=== PATIENT | male | born 1965 | race Caucasian/White ===

== ENCOUNTER → 2024-07-14 15:46 | Outpatient (CLI) | payer OTHER, SELFPAY ==
--- NOTE | 2024-07-14 15:49 | DI.MRI.S_ITS ---
PROCEDURE: MR KNEE LT WO CON INDICATIONS: OSTEOARTHRITIS / EVALUATE LT KNEE TECHNIQUE: Noncontrast sagittal PD fast spin echo and T2 fast spin echo with fat saturation, sagittal 3-D FLASH with fat saturation; coronal T1 spin echo and PD fast spin echo with fat saturation, and axial PD fast spin echo with fat saturation through the knee. COMPARISON: [facility] [place], CR, XR KNEE ARTHRITIC SERIES BI, 07/05/2024, 9:48. FINDINGS: Image quality: Diagnostic Menisci: Medial: Extruded and partially macerated medial meniscus, particularly at the body. There is a radial root tear. Lateral: Mostly horizontal tear throughout the body and posterior horn. Cruciate ligaments: Intact. Medial structures: MCL: Njad-ot-lthtosci periligamentous edema Pes anserine tendons: Moderate bursal edema Semimembranosus: Intact Lateral structures: LCL: Moderate edema at the femoral origin Biceps femoris: Mild insertional tendinopathy IT band: Intact Popliteus tendon: Zxom-bz-hkdhhzge insertional tendinopathy Anterior structures: Extensor mechanism: Extensive enthesopathy, but without significant acute edema Fat pads: No pathologic edema Medial retinaculum: Intact. Trochlea: Abnormally increased TT TG distance at over 2 cm. Bone and joint: Bones: Chronic appearing bone fragment with numerous subchondral cysts lateral to patella. Cartilage: Multifocal areas of full-thickness cartilage loss worst in the medial compartment with subchondral edema at multiple locations. There is also involvement of the medial patellar facet, femoral trochlea. Milder involvement is seen in the lateral compartment Joint space: Moderate joint effusion and synovitis Taveras's cyst: None Soft tissues: Mild diffuse soft tissue edema IMPRESSION: Extruded and partially macerated medial meniscus with radial root tear. Likely degenerative smaller horizontal tear through the lateral meniscus. Advanced degenerative changes with full-thickness cartilage loss of the medial compartment at multiple locations with subchondral edema. There is also full-thickness loss of the medial patellar facet cartilage and femoral trochlear cartilage. Milder involvement seen in lateral compartment. Sprains of the collateral ligaments. Intact cruciate ligaments. 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 Elevated TT TG distance, sometimes seen with maltracking. There is significant enthesopathy at the extensor mechanism without significant acute edema. Jjcj-vx-hsxcgkuo edema of the biceps femoris and popliteus insertions. Moderate bursal edema the pes anserine tendons. Moderate joint effusion and synovitis Dictated by: Jeffry Fisher M.D. on 07/17/2024 at 8:57 Approved by: Jeffry Fisher M.D. on 07/17/2024 at 9:03
== END ==
PROVIDERS: Referring Provider Orthopaedic Surgery Adult Reconstructive Orthopaedic Surgery; Visit Provider Orthopaedic Surgery Adult Reconstructive Orthopaedic Surgery
DX: S83.242A Other tear of medial meniscus, current injury, left knee, initial encounter (principal); M17.12 Unilateral primary osteoarthritis, left knee; M25.462 Effusion, left knee; M65.90 Unspecified synovitis and tenosynovitis, unspecified site; R60.0 Localized edema
CPT/HCPCS: 73721

== ENCOUNTER → 2024-08-07 16:35 | Outpatient (CLI) | payer OTHER, SELFPAY ==
--- NOTE | 2024-08-07 16:54 | EKG_ITS ---
[place] [id number] [place] [id number] Test Date: 2024-08-07 Pat Name: Giuseppe Avilez Department: [facility] Room: Gender: Male Offset Assistant Press Operator: JOSH : 1965 Requested By: Order Number: [id number] Reading MD: Naveen Bullard Measurements Intervals Wallace Rate: 58 P: 30 NE: 192 QRS: 8 QRSD: 92 T: 27 QT: 432 QTc: 424 Interpretive Statements Sinus bradycardia Cannot rule out Inferior infarct , age undetermined Electronically Signed On 08-09-2024 20:04:01 PST by Naveen Bullard
[2024-08-07 17:02] LABS: Add Manual Diff / Slide Review NO; Basophils Absolute Auto 0 /uL (0-100); Basophils Percent Auto 0.5 % (0-2); Eosinophils Absolute Auto 100 /uL (0-450); Hematocrit 46.3 % (41-53); Hemoglobin 15.5 g/dL (13.5-17.5); Lymphocytes Absolute Auto 2100 /uL (1100-4500); Lymphocytes Percent Auto 33.7 % (25-40); Mean Corpuscular HGB Conc 33.3 % (30-36); Mean Corpuscular Volume 86.9 fL (80-100); Monocytes Absolute Auto 600 /uL (0-900); Monocytes Percent Auto 10.1 % (3-14); Neutrophils Absolute Auto 3300 /uL (1500-7000); Neutrophils Percent Auto 53.7 % (50-75); Platelet Count 259 X10^3/uL (150-400); Red Blood Cell Count 5.33 X10^6/uL (4.5-5.9); Red Cell Distribution Width 13.7 % (11.6-14.8); White Blood Cell Count 6.2 X10^3/uL (4.5-11.0)
[2024-08-07 17:15] LABS: Hemoglobin A1C% w Est Avg Glu 5.3 % (4.0-6.0)
[2024-08-07 17:35] LABS: Albumin 4.7 g/dL (3.5-5.0); Calcium 9.5 mg/dL (8.4-10.2); Carbon Dioxide 25 mmol/L (22-32); Chloride 103 mmol/L (98-107); Glucose 95 mg/dL (70-100); HEMOLYSIS 20 (0-50); Potassium 4.1 mmol/L (3.4-5.1); Sodium 139 mmol/L (137-145)
[2024-08-07 17:40] LABS: BUN Creatinine Ratio 20.9 (6-22); Blood Urea Nitrogen 23 mg/dL (9-20); Estimated Glomerular Filt Rate > 60 mL/min (>60)
[2024-08-07 17:42] LABS: Prealbumin 35.7 mg/dL (17.6-36.0)
[2024-08-07 17:46] LABS: Vitamin D 25 Hydroxy (D3) 27.6 ng/mL (30.0-100.0)
== END ==
LOC: RESP 16:36
PROVIDERS: Referring Provider Orthopaedic Surgery Adult Reconstructive Orthopaedic Surgery; Visit Provider Orthopaedic Surgery Adult Reconstructive Orthopaedic Surgery
DX: Z01.818 Encounter for other preprocedural examination (principal); R77.0 Abnormality of albumin; E55.9 Vitamin D deficiency, unspecified; R73.9 Hyperglycemia, unspecified; Z01.812 Encounter for preprocedural laboratory examination
CPT/HCPCS: 36415; 80048; 82040; 82306; 83036; 84134; 85025; 93005

== ENCOUNTER → 2025-01-31 12:55 | Outpatient (CLI) | payer OTHER, SELFPAY ==
--- NOTE | 2025-01-31 12:56 | DI.RAD.S_ITS ---
PROCEDURE: XR CERVICAL SPINE 2V OR 3V INDICATIONS: acute on chronic pain after heavy lifting a few days ago TECHNIQUE: 3 view(s) of the cervical spine were acquired. COMPARISON: None. FINDINGS: Bones: No fractures or dislocations to the C7 level. The lateral masses of C1 appear intact on the odontoid view. No suspicious bony lesions. Focal degenerative change is seen involving the C1-C2 interface anteriorly. There is btkc-bo-pyufxurw disc space narrowing seen at C4-C5, C5-C6, and C6-C7. Multiple levels of facet hypertrophy can be seen. Soft tissues: No prevertebral soft tissue swelling. IMPRESSION: No acute plain film abnormality is seen. Multiple levels of degenerative change can be seen. If it would be helpful for clinical management decision making, please consider a dedicated cervical spine MRI for further evaluation (assuming that there is no contraindication). Dictated by: Brock Gregory M.D. on 01/31/2025 at 12:33 Approved by: Brock Gregory M.D. on 01/31/2025 at 12:33
== END ==
PROVIDERS: PCP Family Medicine; Referring Provider Physician Assistant; Visit Provider Physician Assistant
DX: M47.812 Spondylosis without myelopathy or radiculopathy, cervical region (principal); M54.2 Cervicalgia
CPT/HCPCS: 72040